=== PATIENT | male | born 1935 | race Caucasian/White ===

== ENCOUNTER 2018-06-20 09:09 | Outpatient (CLI) | payer MEDICARE, MEDICAID ==
[~2018-06-20] VITALS: Ht 167.6 cm; Wt 77.6 kg
[2018-06-20] MEDS ORDERED: UNOBMED (10:09)
[2018-06-20 10:37] VITALS: BP 127/55
--- NOTE | 2018-06-21 09:52 | GI Initial Consult Note ---
History of Present Illness General Date patient seen: Jun 20, 2018 Time patient seen: 09:49 Referring physician: CHRISTIAN Reason for Consultation: ANEMIA Present Illness HPI 82 year old male patient presents today for positive FOBT and evaluation of anemia. Patient currently reports no GI symptoms; denies any abdominal pain, N/ V/D or constipation. Denies any unintentional weight loss or changes in dietary habits. No signs of abuse or neglect. Patient is not fall risk. Home Meds Reported Medications Unable to Obtain Medications (UNABLE TO OBTAIN MEDS) 1 Ea Ea 06/20/18 Med list reviewed/reconciled: Yes Allergies: Coded Allergies: No Known Allergies (Unverified , 06/20/18) Patient History History Provided By: Patient, Medical Record PMH Narrative HTN Prostate HLD DM Asthma Past Surgical History: Rt inguinal hernia repair 2017 Pertinent Family History: none Social History: Reports: smoking - quit smoking, other - tea; Denies: alcohol use, drug use Review of Systems All Other Systems: negative except mentioned in HPI Physical Exam Vital Signs Date Time Temp Pulse Resp B/P (MAP) Pulse Ox O2 Delivery O2 Flow Rate FiO2 06/20/18 10:37 98.1 82 16 127/55 95 Sp02 EP Interpretation: reviewed, normal General Appearance: well appearing, no apparent distress, alert Head: normocephalic EENT: PERRL/EOMI, normal ENT inspection Neck: supple Respiratory: normal breath sounds, no respiratory distress Cardiovascular: normal rate Gastrointestinal: normal inspection, non tender, soft, normal bowel sounds, non -distended Rectal: deferred Genitourinary: deferred Musculoskeletal: normal inspection, back normal Neurologic: normal inspection, alert, oriented x3, responsive Psychiatric: normal inspection, judgement/insight normal, memory normal Skin: normal inspection, normal color, no rash, warm/dry, palpation normal, well hydrated Lymphatic: normal inspection, no adenopathy GI: Plan Problems: (1) HTN (hypertension) (2) Anemia (3) Occult blood in stools (4) HLD (hyperlipidemia) (5) Diabetes mellitus (6) Asthma (7) Colonoscopy planned Plan EGD/colonoscopy scheduled 06/26/18. - CLD & (Nulytely/Suprep/Movi-Prep) prep instructions given and acknowledged by patient. - NPO @ [place] day prior procedure explained. Will follow with additional recs post procedure. Seen with Dr. Oliver. Thank you for this patient referral. The patient was seen and examined at bedside and all new and available data was reviewed in the patients chart. I agree with the above findings, impression and plan. (Patient seen earlier today. Signature stamp does not reflect patient encounter time.). - MD Cherie RileyBridget-Pa ISELA Jun 21, 2018 09:52
[2018-06-22] MEDS ORDERED: DOK100 M1 PO (10:30)
[2018-06-22] MEDS ORDERED: IBANDRONATE SO150 MG PO (10:30)
[2018-06-22] MEDS ORDERED: VITAMIN D250000 UNI1 ORAL (10:30)
[2018-06-22] MEDS ORDERED: TAMSULOSIN HCL0.4 MG ORAL (10:30)
[2018-06-22] MEDS ORDERED: METFORMIN HCL500 M1 ORAL (10:30)
[2018-06-22] MEDS ORDERED: ZOLPIDEM TARTRAT5 MG ORAL (10:30)
[2018-06-22] MEDS ORDERED: MONTELUKAST SOD10 MG ORAL (10:30)
[2018-06-22] MEDS ORDERED: AMLODIPINE BESYL5 MG ORAL (10:30)
[2018-06-22] MEDS ORDERED: ADVAIR 250-501 EACH INH (10:30)
[2018-06-22] MEDS ORDERED: FLUTICASONE PRO16 G1 NASAL (10:30)
[2018-06-22] MEDS ORDERED: BENICAR40 MG ORAL (10:30)
[2018-06-22] MEDS ORDERED: DALIRESP250 MCG PO (10:30)
[2018-06-22] MEDS ORDERED: KLONOPIN0.5 MG ORAL (10:30)
[2018-06-22] MEDS ORDERED: CRESTOR20 MG ORAL (10:30)
[2018-06-22] MEDS ORDERED: FEROSUL325 M1 PO (10:30)
[2018-06-22] MEDS ORDERED: DEXILANT60 MG ORAL (10:30)
== END 2018-06-20 09:39 | disposition home or self-care (01) ==
LOC: PAN 09:09
DX: D64.9 Anemia, unspecified (principal); I10 Essential (primary) hypertension; K92.1 Melena; E78.5 Hyperlipidemia, unspecified; E11.9 Type 2 diabetes mellitus without complications; J45.909 Unspecified asthma, uncomplicated; Z87.891 Personal history of nicotine dependence

== ENCOUNTER 2018-06-26 08:51 | Day surgery (SDC) | payer MEDICARE, MEDICAID ==
[2018-06-26] VITALS (9 sets, daily range): BP systolic 128–163; BP diastolic 68–76
[~2018-06-26] VITALS: Ht 165.1 cm; Wt 78.9 kg
--- NOTE | 2018-06-26 06:24 | Anethesia Preoperative Eval ---
Anesthesia Pre-op PMH/ROS General Date of Evaluation: Jun 26, 2018 Time of Evaluation: 06:22 Anesthesiologist: tyler ASA Score: ASA 4 Mallampati Score Class I : Soft palate, uvula, fauces, pillars visible Class II: Soft palate, uvula, fauces visible Class III: Soft palate, base of uvula visible Class IV: Only hard plate visible Mallampati Classification: Class II Surgeon: yarely Diagnosis: anemia, colon screening Surgical Procedure: egd/colonoscopy Social History: smoking - former smoker Family History: no anesthesia problems Allergies: Coded Allergies: No Known Allergies (Unverified , 06/20/18) Medications: see eMAR Patient NPO?: Yes Past Medical History Cardiovascular: Reports: HTN, other - hyperlipidemia Pulmonary: Reports: asthma, other Gastrointestinal/Genitourinary: Reports: other - occult blood in stool Endocrine: Reports: DM HEENT: Reports: cataract (L), cataract (R), KETCHIKAN (L), KETCHIKAN (R), other - wears glasses Hematology/Immune: Reports: anemia Other: obesity PSxH Narrative: right inguinal hernia repair Anesthesia Pre-op Phys. Exam Physician Exam Last Vital Signs Date Time Temp Pulse Resp B/P (MAP) Pulse Ox O2 Delivery O2 Flow Rate FiO2 06/26/18 10:10 Room Air 06/26/18 10:05 98.8 92 20 158/74 96 Constitutional: NAD Neurologic: CN 2-12 intact Cardiovascular: RRR Gastrointestinal: S/NT/ND Airway Exam Mallampati Score: Class II MO: limited Neck: flexible TMD: 2fb ROM: limited Teeth: missing Anesthesia Pre-op A/P Studies Pre-op Studies: EKG - nsr Risk Assessment & Plan Assessment: asa4 Plan: mac Status Change Before Surgery: No Pre-Antibiotics Drug: Shelby Farrell MD Jun 26, 2018 06:24
[~2018-06-26 08:51] MED LIST: ADVAIR 250-501 EACH INH; AMLODIPINE BESYL5 MG ORAL; Atropine Inj 1mg/10ml Syr IV PRN; BENICAR40 MG ORAL; CRESTOR20 MG ORAL; DALIRESP250 MCG PO; DEXILANT60 MG ORAL; DOK100 M1 PO; DiphenhydrAMINE 50mg/ml Inj IVP PRN; FEROSUL325 M1 PO; FLUTICASONE PRO16 G1 NASAL; IBANDRONATE SO150 MG PO; KLONOPIN0.5 MG ORAL; METFORMIN HCL500 M1 ORAL; MONTELUKAST SOD10 MG ORAL; Midazolam 2mg/2ml Inj IVP PRN; TAMSULOSIN HCL0.4 MG ORAL; UNOBMED; VITAMIN D250000 UNI1 ORAL; ZOLPIDEM TARTRAT5 MG ORAL; fentaNYL 100 mcg/2 mL IV PRN
[2018-06-26] MEDS ORDERED: D5 1/2NS 1,000 ML IV ONE (10:45)
[2018-06-26] MEDS ORDERED: Atropine Sulfate 0.4mg/ml inj ONE (11:00)
[2018-06-26] MEDS ORDERED: D5 1/4NS 1000ml IV ONE (11:00)
[2018-06-26] MEDS ORDERED: Lidocaine 1% MPF 10mg/ml 5ml ONE (11:00)
[2018-06-26] MEDS ORDERED: Propofol 200mg/20ml IV ONE (11:00)
--- NOTE | 2018-06-26 11:12 | Short Stay Surgery H&P ---
History of Present Illness History of Present Illness Chief Complaint see recent office note HPI Derrick Clarke is a 82 year old male who was admitted on for Anemia/Colon Screening Patient History Allergies: Coded Allergies: No Known Allergies (Unverified , 06/20/18) Medication History Scheduled Amlodipine Besylate* (Amlodipine Besylate*), 5 MG ORAL DAILY, (Reported) Clonazepam* (Klonopin*), 0.5 MG ORAL Q6H, (Reported) Dexlansoprazole (Dexilant), 60 MG ORAL DAILY, (Reported) Docusate Sodium (Dok), 100 MG PO BID, (Reported) Ergocalciferol (Vitamin D2)* (Vitamin D*), 50,000 UNIT ORAL ONCE A WEEK, ( Reported) Ferrous Sulfate (Ferosul), 325 MG PO DAILY, (Reported) Fluticasone Propionate* (Fluticasone Propionate*), 1 SPRAY NASAL DAILY, ( Reported) Fluticasone/Salmeterol (Advair 250-50 Diskus), 1 PUFF INH EVERY 12 HOURS, ( Reported) Metformin Hcl* (Metformin Hcl*), 500 MG ORAL TWICE A DAY, (Reported) Montelukast Sodium* (Montelukast Sodium*), 10 MG ORAL DAILY, (Reported) Olmesartan Medoxomil (Benicar), 40 MG ORAL DAILY, (Reported) Roflumilast (Daliresp), 500 MCG PO DAILY, (Reported) Rosuvastatin Calcium* (Crestor*), 20 MG ORAL DAILY, (Reported) Tamsulosin Hcl (Tamsulosin Hcl*), 0.4 MG ORAL BEDTIME, (Reported) Scheduled PRN Zolpidem Tartrate* (Zolpidem Tartrate*), 5 MG ORAL BEDTIME PRN for Insomnia, ( Reported) Miscellaneous Medications Ibandronate Sodium (Ibandronate Sodium), 150 MG PO, (Reported) Physical Exam Vital Signs Last Vital Signs Date Time Temp Pulse Resp B/P (MAP) Pulse Ox O2 Delivery O2 Flow Rate FiO2 06/26/18 10:10 Room Air 06/26/18 10:05 98.8 92 20 158/74 96 Plan Attestation Are the patient's medical conditions optimized for surgery? Yassine Oliver MD Jun 26, 2018 11:12
--- NOTE | 2018-06-26 11:12 | Pre-Procedure Note/Attestation ---
Pre-Procedure Note/Attestation Complete Prior to Procedure Planned Procedure: not applicable Procedure Narrative: esophagogastroduodenoscopy and colonoscopy Indications for Procedure Pre-Operative Diagnosis: anemia Attestation I attest that I discussed the nature of the procedure; its benefits; risks and complications; and alternatives (and the risks and benefits of such alternatives ), prior to the procedure, with the patient (or the patient's legal traveling representative). I attest that, if there was a reasonable possibility of needing a blood transfusion, the patient (or the patient's legal traveling representative) was given the [facility] standardized written summary, pursuant to the Nathen Som Blood Safety Act ([place] Health and Safety Code # 1645, as amended). I attest that I re-evaluated the patient just prior to the surgery and that there has been no change in the patient's H&P, except as documented below: Yassine Oliver MD Jun 26, 2018 11:12
--- NOTE | 2018-06-26 12:37 | Endoscopy Procedure Note ---
Endoscopy Procedure Note General Indication for Procedure: anemia Procedures Performed: EGD, colonoscopy Operative Findings/Diagnosis: 22 polyps Specimen: yes Pt Tolerated Procedure Well: Yes Estimated Blood Loss: none Anesthesia Anesthesiologist: tyler Anesthesia: MAC Inserted Devices Implant(s) used?: No Quality Quality of Bowel Preparation: Good Did scope reach the cecum?: Yes Was there any complications?: No GI Core Measures 50 yrs or older w/o bx or poly: No 10yrs. F/U not recommended: Yes If not recommended, why?: Above average risk 10 yrs. F/U needed: Yes 18 years or older w/prev. colo: No Yassine Oliver MD Jun 26, 2018 12:37
--- NOTE | 2018-06-26 12:56 | Immediate Post-Op Evaluation ---
Immediate Post-Op Evalulation Immediate Post-Op Evalulation Procedure: egd/colonoscopy/bx Date of Evaluation: Jun 26, 2018 Time of Evaluation: 12:55 IV Fluids: 750ml d5/0.45ns Blood Products: none Estimated Blood Loss: negligible Blood Pressure Systolic: 163 Blood Pressure Diastolic: 73 Pulse Rate: 72 Respiratory Rate: 18 O2 Sat by Pulse Oximetry: 98 Temperature (Fahrenheit): 98.0 Pain Score (1-10): 0 Nausea: No Vomiting: No Complications none Patient Status: awake, reacts, patent Hydration Status: adequate Drug: Shelby Farrell MD Jun 26, 2018 12:56
--- NOTE | 2018-06-26 12:58 | 48 Hour Post Anesthesia Eval ---
Post Anesthesia Evaluation Procedure: egd/colonoscopy/bx Date of Evaluation: Jun 26, 2018 Time of Evaluation: 12:57 Blood Pressure Systolic: 139 0: 69 Pulse Rate: 70 Respiratory Rate: 18 Temperature (Fahrenheit): 98.0 O2 Sat by Pulse Oximetry: 99 Airway: patent Nausea: No Vomiting: No Pain Intensity: 0 Hydration Status: adequate Cardiopulmonary Status: stable Mental Status/LOC: patient returned to baseline Post-Anesthesia Complications: none Follow-up care needed: N/A Shelby Hudson MD Jun 26, 2018 12:58
--- NOTE | 2018-06-26 20:15 | Procedure Note ---
DATE OF PROCEDURE: 06/26/2018 SURGEON: Yassine Oliver M.D. ANESTHESIOLOGIST: Dr. Ramirez. PROCEDURE: Upper endoscopy with biopsy and colonoscopy with snare polypectomy and biopsy. INSTRUMENT: Olympus adult flexible colonoscope and upper endoscope. INDICATION: Anemia, stool OB positive. The procedure, risks, benefits, and possible consequences, including hemorrhage, aspiration, perforation and infection, and alternative treatments, were explained to the patient/legal guardian by Dr. Yassine Oliver and the patient/legal guardian understood and accepted these risks. DESCRIPTION OF PROCEDURE: After informed consent was obtained and the patient was adequately sedated, Olympus upper endoscope was advanced from the mouth into the second portion of the duodenum and retroflexion was performed in the stomach. The patient has diffuse gastritis. Random biopsy from antrum was obtained to rule out H. pylori infection. At this time, the upper endoscope was retrieved and the patient was turned over for colonoscopy. First, rectal exam was performed, which was normal. Then, the scope was advanced from rectum into the cecum documented by appendix orifice, ileocecal valve, and right upper quadrant palpation. Quality of prep was very good. The patient had a total of 22 polyps in this colonoscopy examination, the largest one was 2.5 cm in size, pedunculated in the sigmoid colon. These polyps were six in the cecum, six in the ascending colon, seven in transverse colon, and three in the sigmoid colon. Again, 22 polyps, the largest one about 2.5 cm and most of them were removed with hot snare polypectomy technique. The patient also had scattered diverticulosis. Retroflexion of rectum showed evidence of small internal hemorrhoids. The patient tolerated the procedure very well without any complications. SUMMARY OF FINDINGS: 1. Gastritis, status post biopsy. 2. 22 polyps, removed. 3. Diverticulosis. 4. Internal hemorrhoids. RECOMMENDATIONS: 1. Follow biopsy results. 2. We recommend repeat colonoscopy at least in one year, given this number of polyps and this large size of the polyps. I want to thank, Dr. Yassine Galan, for this kind referral. Rubina RileyD. DR: AISHA JOB#: [id number] CC: Yassine Galan M.D.; Fax#: [phone]
--- NOTE | 2018-07-03 14:23 | Cardiology Report ---
APPROVED REPORT EKG Measurement Heart [id number] FL [id number] Normal sinus rhythm Normal ECG
== END 2018-06-26 14:00 | disposition home or self-care (01) ==
LOC: GAS 08:51
DX: Z12.11 Encounter for screening for malignant neoplasm of colon (principal); K29.50 Unspecified chronic gastritis without bleeding; C18.7 Malignant neoplasm of sigmoid colon; B96.81 Helicobacter pylori [H. pylori] as the cause of diseases classified elsewhere; D12.2 Benign neoplasm of ascending colon; D12.0 Benign neoplasm of cecum; D12.3 Benign neoplasm of transverse colon; Z79.84 Long term (current) use of oral hypoglycemic drugs; D64.9 Anemia, unspecified; K63.5 Polyp of colon; K57.90 Diverticulosis of intestine, part unspecified, without perforation or abscess without bleeding; K64.8 Other hemorrhoids
CPT/HCPCS: 82962; 93005; 94003; 94150

== ENCOUNTER 2018-07-06 12:56 | Outpatient (CLI) | payer MEDICARE, MEDICAID ==
[~2018-07-06 12:56] MED LIST changes: -Atropine Inj 1mg/10ml Syr IV PRN; -DiphenhydrAMINE 50mg/ml Inj IVP PRN; -Midazolam 2mg/2ml Inj IVP PRN; -fentaNYL 100 mcg/2 mL IV PRN
[2018-07-06 13:13] VITALS: BP 124/64
--- NOTE | 2018-07-06 13:58 | GI Progress Note ---
Assessment/Plan Problems: (1) H. pylori infection ICD Codes: A04.8 - Other specified bacterial intestinal infections SNOMED: 880527867 (2) Colonic polyp ICD Codes: K63.5 - Polyp of colon SNOMED: [id number] Status: stable Status Narrative Seen with Dr. Oliver. Assessment/Plan SUMMARY OF FINDINGS reviewed with patient: 1. Gastritis, status post biopsy. 2. 22 polyps, removed. 3. Diverticulosis. 4. Internal hemorrhoids. RECOMMENDATIONS: 1. Follow biopsy results. >> Adenocarcinoma 2. We recommend repeat colonoscopy at least in one year, given this number of polyps and this large size of the polyps. H. pylori treatment Refer to surgery given number polyps RTC times 3 months for repeat breath test The patient was seen and examined at bedside and all new and available data was reviewed in the patients chart. I agree with the above findings, impression and plan. (Patient seen earlier today. Signature stamp does not reflect patient encounter time.). - Yassine Oliver MD Subjective Subjective No GI symptoms Here for EGD colonoscopy review Objective Last 24 Hour Vital Signs Date Time Temp Pulse Resp B/P (MAP) Pulse Ox O2 Delivery O2 Flow Rate FiO2 07/06/18 13:13 98.1 85 16 124/64 93 General Appearance: WD/WN, no apparent distress, alert Cardiovascular: normal rate Respiratory/Chest: normal breath sounds, no respiratory distress Abdominal Exam: normal bowel sounds, non tender, soft Extremities: normal range of motion, non-tender Heena Crespo [employer] Jul 06, 2018 13:58
== END 2018-07-06 13:26 | disposition home or self-care (01) ==
LOC: PAN 12:56
DX: A04.8 Other specified bacterial intestinal infections (principal); K63.5 Polyp of colon; K29.70 Gastritis, unspecified, without bleeding; K57.90 Diverticulosis of intestine, part unspecified, without perforation or abscess without bleeding; K64.8 Other hemorrhoids
CPT/HCPCS: 99212

== ENCOUNTER 2018-07-24 07:07 | Day surgery (SDC) | payer MEDICARE, MEDICAID ==
[~2018-07-24] VITALS: Ht 165.1 cm; Wt 77.1 kg
[2018-07-24] VITALS (9 sets, daily range): BP systolic 112–134; BP diastolic 60–68
--- NOTE | 2018-07-24 06:46 | Anethesia Preoperative Eval ---
Anesthesia Pre-op PMH/ROS General Date of Evaluation: Jul 24, 2018 Time of Evaluation: 06:43 Anesthesiologist: tylre ASA Score: ASA 4 Mallampati Score Class I : Soft palate, uvula, fauces, pillars visible Class II: Soft palate, uvula, fauces visible Class III: Soft palate, base of uvula visible Class IV: Only hard plate visible Mallampati Classification: Class II Surgeon: yarely Diagnosis: colon cancer Surgical Procedure: colonoscopy Anesthesia History: none Social History: smoking - former smoker Family History: no anesthesia problems Allergies: Coded Allergies: No Known Allergies (Unverified , 07/24/18) Medications: see eMAR Patient NPO?: Yes Past Medical History Cardiovascular: Reports: HTN, other - hyperlipidemia Pulmonary: Reports: asthma Gastrointestinal/Genitourinary: Reports: other - h. pylori infection Endocrine: Reports: DM Hematology/Immune: Reports: anemia Anesthesia Pre-op Phys. Exam Physician Exam Constitutional: NAD Neurologic: CN 2-12 intact Cardiovascular: RRR Respiratory: CTA Gastrointestinal: S/NT/ND Airway Exam Mallampati Score: Class II MO: limited Neck: stiff TMD: 2fb ROM: limited Dentures: upper, lower Anesthesia Pre-op A/P Studies Pre-op Studies: EKG - nsr Risk Assessment & Plan Assessment: asa4 Plan: mac Status Change Before Surgery: No Pre-Antibiotics Drug: Shelby Farrell MD Jul 24, 2018 06:46
[~2018-07-24 07:07] MED LIST changes: +Atropine Inj 1mg/10ml Syr IV PRN; +DiphenhydrAMINE 50mg/ml Inj IVP PRN; +Midazolam 2mg/2ml Inj IVP PRN; +fentaNYL 100 mcg/2 mL IV PRN
[2018-07-24] MEDS ORDERED: Propofol 200mg/20ml IV ONE (09:00)
[2018-07-24] MEDS ORDERED: Lidocaine 1% MPF 10mg/ml 5ml ONE (09:00)
--- NOTE | 2018-07-24 09:27 | Pre-Procedure Note/Attestation ---
Pre-Procedure Note/Attestation Complete Prior to Procedure Planned Procedure: not applicable Procedure Narrative: colonoscopy Indications for Procedure Pre-Operative Diagnosis: colon cancer Attestation I attest that I discussed the nature of the procedure; its benefits; risks and complications; and alternatives (and the risks and benefits of such alternatives ), prior to the procedure, with the patient (or the patient's legal outside sales account representative). I attest that, if there was a reasonable possibility of needing a blood transfusion, the patient (or the patient's legal outside sales account representative) was given the [facility] standardized written summary, pursuant to the Nathen Som Blood Safety Act ([place] Health and Safety Code # 1645, as amended). I attest that I re-evaluated the patient just prior to the surgery and that there has been no change in the patient's H&P, except as documented below: Yassine Oliver MD Jul 24, 2018 09:27
--- NOTE | 2018-07-24 09:29 | Short Stay Surgery H&P ---
History of Present Illness History of Present Illness Chief Complaint please see recent office consult note HPI Derrick Clarke is a 82 year old male who was admitted on for Colon Cancer Patient History Allergies: Coded Allergies: No Known Allergies (Unverified , 07/24/18) Medication History Scheduled Amlodipine Besylate* (Amlodipine Besylate*), 5 MG ORAL DAILY, (Reported) Clonazepam* (Klonopin*), 0.5 MG ORAL Q6H, (Reported) Dexlansoprazole (Dexilant), 60 MG ORAL DAILY, (Reported) Docusate Sodium (Dok), 100 MG PO BID, (Reported) Ergocalciferol (Vitamin D2)* (Vitamin D*), 50,000 UNIT ORAL ONCE A WEEK, ( Reported) Ferrous Sulfate (Ferosul), 325 MG PO DAILY, (Reported) Fluticasone Propionate* (Fluticasone Propionate*), 1 SPRAY NASAL DAILY, ( Reported) Fluticasone/Salmeterol (Advair 250-50 Diskus), 1 PUFF INH EVERY 12 HOURS, ( Reported) Metformin Hcl* (Metformin Hcl*), 500 MG ORAL TWICE A DAY, (Reported) Montelukast Sodium* (Montelukast Sodium*), 10 MG ORAL DAILY, (Reported) Olmesartan Medoxomil (Benicar), 40 MG ORAL DAILY, (Reported) Roflumilast (Daliresp), 500 MCG PO DAILY, (Reported) Rosuvastatin Calcium* (Crestor*), 20 MG ORAL DAILY, (Reported) Tamsulosin Hcl (Tamsulosin Hcl*), 0.4 MG ORAL BEDTIME, (Reported) Scheduled PRN Zolpidem Tartrate* (Zolpidem Tartrate*), 5 MG ORAL BEDTIME PRN for Insomnia, ( Reported) Miscellaneous Medications Ibandronate Sodium (Ibandronate Sodium), 150 MG PO, (Reported) Physical Exam Vital Signs Last Vital Signs Date Time Temp Pulse Resp B/P (MAP) Pulse Ox O2 Delivery O2 Flow Rate FiO2 07/24/18 08:05 Room Air 07/24/18 08:01 98.0 71 18 128/60 95 Plan Attestation Are the patient's medical conditions optimized for surgery? Yassine Oliver MD Jul 24, 2018 09:28
--- NOTE | 2018-07-24 10:03 | Endoscopy Procedure Note ---
Endoscopy Procedure Note General Indication for Procedure: colon cancer Procedures Performed: colonoscopy Operative Findings/Diagnosis: 6 polyps Specimen: yes Pt Tolerated Procedure Well: Yes Estimated Blood Loss: none Anesthesia Anesthesiologist: tyler Anesthesia: MAC Inserted Devices Implant(s) used?: No Quality Quality of Bowel Preparation: Good Did scope reach the cecum?: Yes Was there any complications?: No GI Core Measures 50 yrs or older w/o bx or poly: No 10yrs. F/U not recommended: Yes If not recommended, why?: Above average risk 10 yrs. F/U needed: Yes 18 years or older w/prev. colo: Yes <3yrs. since last colonoscopy: Yes Med reason:<3 yrs.: Piecemeal removal-Adenoma Yassine Oliver MD Jul 24, 2018 10:03
--- NOTE | 2018-07-24 10:39 | 48 Hour Post Anesthesia Eval ---
Post Anesthesia Evaluation Procedure: colonoscopy w/bx Date of Evaluation: Jul 24, 2018 Time of Evaluation: 10:26 Blood Pressure Systolic: 112 0: 65 Pulse Rate: 65 Respiratory Rate: 18 Temperature (Fahrenheit): 97.6 O2 Sat by Pulse Oximetry: 100 Airway: patent Nausea: No Vomiting: No Pain Intensity: 0 Hydration Status: adequate Cardiopulmonary Status: stable Mental Status/LOC: patient returned to baseline Post-Anesthesia Complications: none Follow-up care needed: N/A Shelby Hudson MD Jul 24, 2018 10:39
--- NOTE | 2018-07-24 10:39 | Immediate Post-Op Evaluation ---
Immediate Post-Op Evalulation Immediate Post-Op Evalulation Procedure: colonoscopy w/bx Date of Evaluation: Jul 24, 2018 Time of Evaluation: 10:24 IV Fluids: 250ml 0.9ns Blood Products: none Estimated Blood Loss: negligible Blood Pressure Systolic: 118 Blood Pressure Diastolic: 63 Pulse Rate: 67 Respiratory Rate: 18 O2 Sat by Pulse Oximetry: 100 Temperature (Fahrenheit): 97.6 Pain Score (1-10): 0 Nausea: No Vomiting: No Complications none Patient Status: awake, reacts, patent Hydration Status: adequate Drug: Shelby Farrell MD Jul 24, 2018 10:39
--- NOTE | 2018-07-24 15:00 | Procedure Note ---
DATE OF PROCEDURE: 07/24/2018 SURGEON: Yassine Oliver M.D. PROCEDURE: Colonoscopy with snare polypectomy and biopsy. ANESTHESIA: Per Dr. Ramirez. INSTRUMENT: Olympus adult flexible colonoscope INDICATION: Recent colon cancer. REASON FOR PROCEDURE: The procedure, risks, benefits, and possible consequences, including hemorrhage, aspiration, perforation and infection, and alternative treatments, were explained to the patient/legal guardian by Dr. Yassine Oliver and the patient/legal guardian understood and accepted these risks. PROCEDURE IN DETAIL: After informed consent was obtained and the patient was adequately sedated, first rectal exam was performed, which was normal. Then, the scope was advanced from rectum into the cecum documented by appendiceal orifice, ileocecal valve, and right upper quadrant palpation. The patient had 3 polyps in the ascending colon, one of them removed with cold biopsy and the other two with snare, they were less than 1 cm. There were all successfully resected. The patient had three large polyps in the sigmoid colon at about 25 cm from anal verge, the largest one measured 2.8 centimeter pedunculated, all 3 of them. The other one was smaller about 1.1 and the other one also . All 3 of them removed with the snare polypectomy technique. After we removed the 2.8 centimeter polyp, there was few drops of blood from the polypectomy site so we decided to place the clip just to make sure that adequately we close that. The patient has also evidence of moderate sigmoid diverticulosis. At this time, we decided to tattoo the area at about 25 cm from the anal verge, that is the area which we removed today the three polyps and this is the area most probably he had a colonoscopy two weeks ago and had a cancerous polyp removed so we used a needle and injected 3 mL of the iodine into the lumen with adequate . SUMMARY OF FINDINGS: 1. Six polyps removed, see above for details. Largest about 2.8 centimeter. 2. Diverticulosis. 3. Status post tattooing at about 25 cm from the anal verge for future surgery. RECOMMENDATIONS: 1. Follow pathology. 2. The patient was scheduled to see the surgeon tomorrow for scheduling for surgery basically. I want to thank, Dr. Yassine Galan for this kind referral. Yassine Oliver M.D. DR: Fatuma JOB#: [id number] CC: Yassine Galan M.D.; Fax#: [phone]
== END 2018-07-24 11:25 | disposition home or self-care (01) ==
LOC: GAS 07:07 → EDBD 09:00 → GAS 11:25
DX: Z85.038 Personal history of other malignant neoplasm of large intestine (principal); D12.5 Benign neoplasm of sigmoid colon; D12.3 Benign neoplasm of transverse colon; K57.30 Diverticulosis of large intestine without perforation or abscess without bleeding; E11.9 Type 2 diabetes mellitus without complications; Z79.84 Long term (current) use of oral hypoglycemic drugs; I10 Essential (primary) hypertension; E78.5 Hyperlipidemia, unspecified; J45.909 Unspecified asthma, uncomplicated; D64.9 Anemia, unspecified; Z87.891 Personal history of nicotine dependence
CPT/HCPCS: 45381; 82962; J2704; 94003; 94150